=== PATIENT | female | born 1965 | race Two or more races ===

== ENCOUNTER → 2017-05-19 | Outpatient (CLI) | payer OTHER ==
[~2017-05-19] MED LIST: EFFEXOR XR150 MG; EFFEXOR XR150 MG PO; FUSION PLUS CA1 EACH; INTESTINEX680 M1; LEXAPRO5 MG; OPTIMAL D350000 UNIT; PEPCID40 MG; PNEU16DI2; PROTONIX40 MG
== END | disposition home or self-care (01) ==
LOC: TOM 08:28
DX: R10.9 Unspecified abdominal pain (principal)

== ENCOUNTER 2017-05-22 08:50 | Emergency (ER) | payer OTHER ==
[~2017-05-22] VITALS: Ht 157.5 cm; Wt 87.5 kg
[~2017-05-22 08:50] MED LIST changes: -INTESTINEX680 M1; -OPTIMAL D350000 UNIT; -PEPCID40 MG; -PROTONIX40 MG
[2017-05-22] MEDS ORDERED: INTESTINEX680 M1 (09:12)
[2017-05-22] MEDS ORDERED: PROTONIX40 MG (09:13)
[2017-05-22] MEDS ORDERED: PEPCID40 MG (09:13)
[2017-05-22] MEDS ORDERED: OPTIMAL D350000 UNIT (09:14)
== END 2017-05-22 18:37 | disposition home or self-care (01) ==
LOC: ER 08:50
DX: K52.9 Noninfective gastroenteritis and colitis, unspecified (principal)

== ENCOUNTER → 2017-05-25 | Outpatient (CLI) | payer OTHER ==
[~2017-05-25] MED LIST changes: +INTESTINEX680 M1; +OPTIMAL D350000 UNIT; +PEPCID40 MG; +PROTONIX40 MG
== END | disposition home or self-care (01) ==
LOC: LAB 10:55
DX: R10.30 Lower abdominal pain, unspecified (principal); R19.7 Diarrhea, unspecified; R74.0 Nonspecific elevation of levels of transaminase and lactic acid dehydrogenase [LDH]; K75.4 Autoimmune hepatitis

== ENCOUNTER 2017-05-29 12:08 | Outpatient (CLI) | payer OTHER | END 2017-05-29 12:17 | disposition home or self-care (01) | LOC: LAB 12:08 | DX: R10.30 Lower abdominal pain, unspecified (principal); R19.7 Diarrhea, unspecified; R74.0 Nonspecific elevation of levels of transaminase and lactic acid dehydrogenase [LDH]; K75.4 Autoimmune hepatitis ==

== ENCOUNTER 2017-06-26 07:54 | Outpatient (CLI) | payer OTHER | END 2017-06-26 08:02 | disposition home or self-care (01) | LOC: LAB 07:54 | DX: D50.0 Iron deficiency anemia secondary to blood loss (chronic) (principal); K22.11 Ulcer of esophagus with bleeding; K25.4 Chronic or unspecified gastric ulcer with hemorrhage; Z87.11 Personal history of peptic ulcer disease; R04.0 Epistaxis; E88.81 Metabolic syndrome and other insulin resistance; F33.9 Major depressive disorder, recurrent, unspecified; G47.33 Obstructive sleep apnea (adult) (pediatric); D51.8 Other vitamin B12 deficiency anemias; D51.0 Vitamin B12 deficiency anemia due to intrinsic factor deficiency; R19.5 Other fecal abnormalities ==

== ENCOUNTER 2017-07-24 08:17 | Outpatient (CLI) | payer OTHER | END 2017-07-24 08:26 | disposition home or self-care (01) | LOC: LAB 08:17 | DX: D50.0 Iron deficiency anemia secondary to blood loss (chronic) (principal); K22.11 Ulcer of esophagus with bleeding; K25.4 Chronic or unspecified gastric ulcer with hemorrhage; Z87.11 Personal history of peptic ulcer disease; R04.0 Epistaxis; E88.81 Metabolic syndrome and other insulin resistance; F33.9 Major depressive disorder, recurrent, unspecified; G47.33 Obstructive sleep apnea (adult) (pediatric); R71.8 Other abnormality of red blood cells; R19.5 Other fecal abnormalities ==

== ENCOUNTER 2017-07-27 10:14 | Outpatient (CLI) | payer OTHER | END 2017-07-27 10:22 | disposition home or self-care (01) | LOC: LAB 10:14 | DX: D50.0 Iron deficiency anemia secondary to blood loss (chronic) (principal); K22.11 Ulcer of esophagus with bleeding; K25.4 Chronic or unspecified gastric ulcer with hemorrhage; E88.81 Metabolic syndrome and other insulin resistance; F33.8 Other recurrent depressive disorders; G47.33 Obstructive sleep apnea (adult) (pediatric); R04.0 Epistaxis; R71.8 Other abnormality of red blood cells; R19.5 Other fecal abnormalities; Z87.11 Personal history of peptic ulcer disease ==

== ENCOUNTER → 2017-08-08 | Outpatient (CLI) | payer OTHER | END | disposition home or self-care (01) | LOC: LAB 11:23 | DX: D50.0 Iron deficiency anemia secondary to blood loss (chronic) (principal) ==

== ENCOUNTER 2017-08-29 10:27 | Outpatient (CLI) | payer OTHER | END 2017-08-29 10:34 | disposition home or self-care (01) | LOC: RAD 501 10:27 | DX: M20.11 Hallux valgus (acquired), right foot (principal); M20.12 Hallux valgus (acquired), left foot ==

== ENCOUNTER 2017-09-14 09:15 | Outpatient (CLI) | payer OTHER | END 2017-09-14 17:00 | disposition home or self-care (01) | LOC: MAMO-SONO 09:15 | DX: Z12.31 Encounter for screening mammogram for malignant neoplasm of breast (principal); N62 Hypertrophy of breast ==

== ENCOUNTER 2017-09-26 10:39 | Outpatient (CLI) | payer OTHER | END 2017-09-26 11:08 | disposition home or self-care (01) | LOC: LAB 10:39 | DX: D50.0 Iron deficiency anemia secondary to blood loss (chronic) (principal); K22.11 Ulcer of esophagus with bleeding; K25.4 Chronic or unspecified gastric ulcer with hemorrhage; Z87.11 Personal history of peptic ulcer disease; R04.0 Epistaxis; E88.81 Metabolic syndrome and other insulin resistance; F33.9 Major depressive disorder, recurrent, unspecified; G47.33 Obstructive sleep apnea (adult) (pediatric) ==

== ENCOUNTER 2017-10-17 07:27 | Outpatient (CLI) | payer OTHER | END 2017-10-17 07:34 | disposition home or self-care (01) | LOC: NUCLEAR 07:27 | DX: I25.10 Atherosclerotic heart disease of native coronary artery without angina pectoris (principal); R07.89 Other chest pain | CPT/HCPCS: 78452; 93017; A9500; J0153 ==

== ENCOUNTER → 2018-01-04 10:30 | Outpatient (CLI) | payer OTHER | END | disposition home or self-care (01) | LOC: LAB 10:30 | DX: D50.0 Iron deficiency anemia secondary to blood loss (chronic) (principal); K22.11 Ulcer of esophagus with bleeding; K25.4 Chronic or unspecified gastric ulcer with hemorrhage; Z87.11 Personal history of peptic ulcer disease; R04.0 Epistaxis; E88.81 Metabolic syndrome and other insulin resistance; G47.33 Obstructive sleep apnea (adult) (pediatric); D50.8 Other iron deficiency anemias; D51.8 Other vitamin B12 deficiency anemias; E03.8 Other specified hypothyroidism ==

== ENCOUNTER 2018-04-21 07:46 | Outpatient (CLI) | payer OTHER | END 2018-04-21 07:50 | disposition home or self-care (01) | LOC: LAB 07:46 | DX: D50.0 Iron deficiency anemia secondary to blood loss (chronic) (principal); K22.11 Ulcer of esophagus with bleeding; K25.4 Chronic or unspecified gastric ulcer with hemorrhage; Z87.11 Personal history of peptic ulcer disease; R04.0 Epistaxis; E88.81 Metabolic syndrome and other insulin resistance; F33.9 Major depressive disorder, recurrent, unspecified; G47.33 Obstructive sleep apnea (adult) (pediatric); D50.8 Other iron deficiency anemias; D51.8 Other vitamin B12 deficiency anemias; E03.8 Other specified hypothyroidism ==

== ENCOUNTER 2018-04-25 09:39 | Outpatient (CLI) | payer OTHER | END 2018-04-25 09:58 | disposition home or self-care (01) | LOC: NUCLEAR 09:39 | DX: I87.2 Venous insufficiency (chronic) (peripheral) (principal) ==

== ENCOUNTER 2018-06-05 09:14 | Outpatient (CLI) | payer OTHER | END 2018-06-05 09:47 | disposition home or self-care (01) | LOC: LAB 09:14 | DX: N64.4 Mastodynia (principal); D50.0 Iron deficiency anemia secondary to blood loss (chronic); K22.11 Ulcer of esophagus with bleeding; Z87.11 Personal history of peptic ulcer disease; R04.0 Epistaxis; E88.81 Metabolic syndrome and other insulin resistance; F33.8 Other recurrent depressive disorders; G47.33 Obstructive sleep apnea (adult) (pediatric); D68.8 Other specified coagulation defects; D68.0 Von Willebrand disease; D50.8 Other iron deficiency anemias ==

== ENCOUNTER 2018-06-12 12:16 | Outpatient (CLI) | payer OTHER | END 2018-06-12 13:15 | disposition home or self-care (01) | LOC: RAD 12:16 | DX: R60.0 Localized edema (principal); M25.521 Pain in right elbow ==

== ENCOUNTER → 2018-09-01 08:12 | Outpatient (CLI) | payer OTHER | END | disposition home or self-care (01) | LOC: LAB 08:12 | DX: D68.0 Von Willebrand disease (principal); D50.0 Iron deficiency anemia secondary to blood loss (chronic); K22.11 Ulcer of esophagus with bleeding; K25.4 Chronic or unspecified gastric ulcer with hemorrhage; Z87.11 Personal history of peptic ulcer disease; R04.0 Epistaxis; E88.81 Metabolic syndrome and other insulin resistance; F33.8 Other recurrent depressive disorders; G47.33 Obstructive sleep apnea (adult) (pediatric); N64.4 Mastodynia ==

== ENCOUNTER 2018-09-19 08:47 | Outpatient (CLI) | payer OTHER | END 2018-09-19 09:06 | disposition home or self-care (01) | LOC: MAMO-SONO 08:47 | DX: N60.11 Diffuse cystic mastopathy of right breast (principal); N60.12 Diffuse cystic mastopathy of left breast; Z12.31 Encounter for screening mammogram for malignant neoplasm of breast; Z87.898 Personal history of other specified conditions ==

== ENCOUNTER 2018-11-22 07:55 | Emergency (ER) | payer OTHER ==
[~2018-11-22] VITALS: Ht 167.6 cm; Wt 72.6 kg
[2018-11-22] MEDS ORDERED: IBUPROFEN800 MG PO (11:04)
[2018-11-22] MEDS ORDERED: CLEOCIN HCL300 MG PO (11:04)
== END 2018-11-22 11:03 | disposition home or self-care (01) ==
LOC: ER 07:55
DX: K04.7 Periapical abscess without sinus (principal)

== ENCOUNTER → 2019-01-12 08:01 | Outpatient (CLI) | payer OTHER ==
[~2019-01-12 08:01] MED LIST changes: +CLEOCIN HCL300 MG PO; +IBUPROFEN800 MG PO
== END | disposition home or self-care (01) ==
LOC: LAB 08:01
DX: D68.0 Von Willebrand disease (principal); D50.0 Iron deficiency anemia secondary to blood loss (chronic); K22.11 Ulcer of esophagus with bleeding; K25.4 Chronic or unspecified gastric ulcer with hemorrhage; Z87.11 Personal history of peptic ulcer disease; R04.0 Epistaxis; E88.81 Metabolic syndrome and other insulin resistance; F33.8 Other recurrent depressive disorders; G47.33 Obstructive sleep apnea (adult) (pediatric); N64.4 Mastodynia; D50.8 Other iron deficiency anemias; D51.8 Other vitamin B12 deficiency anemias; I10 Essential (primary) hypertension; N39.0 Urinary tract infection, site not specified; D68.8 Other specified coagulation defects

== ENCOUNTER 2019-01-31 09:51 | Outpatient (CLI) | payer OTHER | END 2019-01-31 10:03 | disposition home or self-care (01) | LOC: NUCLEAR 09:51 | DX: R22.43 Localized swelling, mass and lump, lower limb, bilateral (principal); I87.2 Venous insufficiency (chronic) (peripheral) ==

== ENCOUNTER 2019-03-09 07:13 | Emergency (ER) | payer OTHER ==
[~2019-03-09] VITALS: Ht 157.5 cm; Wt 92.1 kg
== END 2019-03-09 09:53 | disposition home or self-care (01) ==
LOC: ER 07:13
DX: R21 Rash and other nonspecific skin eruption (principal)

== ENCOUNTER 2019-05-16 09:09 | Outpatient (CLI) | payer OTHER | END 2019-05-16 09:15 | disposition home or self-care (01) | LOC: LAB 09:09 | DX: D68.0 Von Willebrand disease (principal); D50.0 Iron deficiency anemia secondary to blood loss (chronic); K22.11 Ulcer of esophagus with bleeding; K25.4 Chronic or unspecified gastric ulcer with hemorrhage; Z87.11 Personal history of peptic ulcer disease; R04.0 Epistaxis; E88.81 Metabolic syndrome and other insulin resistance; F33.8 Other recurrent depressive disorders; G47.33 Obstructive sleep apnea (adult) (pediatric); N64.4 Mastodynia; R22.43 Localized swelling, mass and lump, lower limb, bilateral; D50.8 Other iron deficiency anemias; D51.8 Other vitamin B12 deficiency anemias; I10 Essential (primary) hypertension; E03.8 Other specified hypothyroidism; R19.5 Other fecal abnormalities ==

== ENCOUNTER → 2019-06-17 | Outpatient (CLI) | payer OTHER | END | disposition home or self-care (01) | LOC: LAB 10:38 | DX: D50.8 Other iron deficiency anemias (principal); I10 Essential (primary) hypertension; D68.8 Other specified coagulation defects; D68.0 Von Willebrand disease; E03.8 Other specified hypothyroidism; D50.0 Iron deficiency anemia secondary to blood loss (chronic); K22.11 Ulcer of esophagus with bleeding; K25.4 Chronic or unspecified gastric ulcer with hemorrhage; Z87.11 Personal history of peptic ulcer disease; R04.0 Epistaxis; E88.81 Metabolic syndrome and other insulin resistance; F33.8 Other recurrent depressive disorders; G47.33 Obstructive sleep apnea (adult) (pediatric); N64.4 Mastodynia; R22.43 Localized swelling, mass and lump, lower limb, bilateral ==

== ENCOUNTER 2019-09-23 09:27 | Outpatient (CLI) | payer OTHER | END 2019-09-23 16:46 | disposition home or self-care (01) | LOC: MAMO-SONO 09:27 | DX: Z12.31 Encounter for screening mammogram for malignant neoplasm of breast (principal); Z87.898 Personal history of other specified conditions; N63.10 Unspecified lump in the right breast, unspecified quadrant ==

== ENCOUNTER 2019-11-28 13:52 | Outpatient (CLI) | payer OTHER | END 2019-11-28 13:53 | disposition home or self-care (01) | LOC: NUCLEAR 13:52 | PROVIDERS: ATTEND Internal Medicine Cardiovascular Disease | DX: M81.0 Age-related osteoporosis without current pathological fracture (principal); E55.9 Vitamin D deficiency, unspecified ==

== ENCOUNTER 2019-12-07 10:28 | Outpatient (CLI) | payer OTHER | END 2019-12-07 15:47 | disposition home or self-care (01) | LOC: LAB 10:28 | PROVIDERS: ATTEND Internal Medicine Hematology & Oncology | DX: D50.8 Other iron deficiency anemias (principal); I10 Essential (primary) hypertension; E55.9 Vitamin D deficiency, unspecified; E03.8 Other specified hypothyroidism; D68.8 Other specified coagulation defects; D68.0 Von Willebrand disease; D50.0 Iron deficiency anemia secondary to blood loss (chronic); K22.11 Ulcer of esophagus with bleeding; K25.4 Chronic or unspecified gastric ulcer with hemorrhage; Z87.11 Personal history of peptic ulcer disease; R04.0 Epistaxis; E88.81 Metabolic syndrome and other insulin resistance; F33.8 Other recurrent depressive disorders; G47.33 Obstructive sleep apnea (adult) (pediatric); N64.4 Mastodynia; R22.43 Localized swelling, mass and lump, lower limb, bilateral ==

== ENCOUNTER → 2020-02-06 | Outpatient (CLI) | payer OTHER | END | disposition home or self-care (01) | LOC: SONOGRAMA 08:40 | PROVIDERS: ATTEND Specialist | DX: R31.29 Other microscopic hematuria (principal) ==

== ENCOUNTER 2020-04-08 08:55 | Outpatient (CLI) | payer OTHER | END 2020-04-13 08:46 | disposition home or self-care (01) | LOC: LAB 08:55 | PROVIDERS: ATTEND Internal Medicine Hematology & Oncology | DX: D50.8 Other iron deficiency anemias (principal); I10 Essential (primary) hypertension; E55.9 Vitamin D deficiency, unspecified; E03.8 Other specified hypothyroidism; D68.8 Other specified coagulation defects; D68.0 Von Willebrand disease; D50.0 Iron deficiency anemia secondary to blood loss (chronic); K22.11 Ulcer of esophagus with bleeding; K25.4 Chronic or unspecified gastric ulcer with hemorrhage; Z87.11 Personal history of peptic ulcer disease; R04.0 Epistaxis; E88.81 Metabolic syndrome and other insulin resistance; F33.8 Other recurrent depressive disorders; G47.33 Obstructive sleep apnea (adult) (pediatric); N64.4 Mastodynia; R22.43 Localized swelling, mass and lump, lower limb, bilateral; B37.89 Other sites of candidiasis ==

== ENCOUNTER → 2020-08-04 | Outpatient (CLI) | payer OTHER | END | disposition home or self-care (01) | LOC: LAB 09:32 | PROVIDERS: ATTEND Internal Medicine Hematology & Oncology | DX: D50.8 Other iron deficiency anemias (principal); R74.02 Elevation of levels of lactic acid dehydrogenase [LDH]; I10 Essential (primary) hypertension; K76.89 Other specified diseases of liver; E03.8 Other specified hypothyroidism; D68.8 Other specified coagulation defects; D69.1 Qualitative platelet defects; K22.11 Ulcer of esophagus with bleeding; K25.4 Chronic or unspecified gastric ulcer with hemorrhage; G47.33 Obstructive sleep apnea (adult) (pediatric); R73.01 Impaired fasting glucose; F33.9 Major depressive disorder, recurrent, unspecified ==

== ENCOUNTER 2020-08-12 07:48 | Outpatient (CLI) | payer OTHER | END 2020-08-12 13:19 | disposition home or self-care (01) | LOC: SONOGRAMA 07:48 | PROVIDERS: ATTEND Internal Medicine Hematology & Oncology | DX: D68.0 Von Willebrand disease (principal); D50.0 Iron deficiency anemia secondary to blood loss (chronic); K22.11 Ulcer of esophagus with bleeding; K25.4 Chronic or unspecified gastric ulcer with hemorrhage; R04.0 Epistaxis; F33.9 Major depressive disorder, recurrent, unspecified; G47.33 Obstructive sleep apnea (adult) (pediatric); N64.4 Mastodynia; R22.43 Localized swelling, mass and lump, lower limb, bilateral; B37.89 Other sites of candidiasis; R73.01 Impaired fasting glucose; R94.5 Abnormal results of liver function studies ==

== ENCOUNTER 2020-08-20 10:31 | Outpatient (CLI) | payer OTHER | END 2020-08-20 16:22 | disposition home or self-care (01) | LOC: LAB 10:31 | PROVIDERS: ATTEND Internal Medicine Cardiovascular Disease | DX: N39.0 Urinary tract infection, site not specified (principal) ==

== ENCOUNTER 2020-09-22 08:56 | Outpatient (CLI) | payer OTHER | END 2020-09-22 09:07 | disposition home or self-care (01) | LOC: MAMO-SONO 08:56 | PROVIDERS: ATTEND Internal Medicine Cardiovascular Disease | DX: Z12.31 Encounter for screening mammogram for malignant neoplasm of breast (principal); Z87.898 Personal history of other specified conditions; N64.89 Other specified disorders of breast ==

== ENCOUNTER 2020-11-10 09:47 | Outpatient (CLI) | payer OTHER | END 2020-11-10 09:48 | disposition home or self-care (01) | LOC: LAB 09:47 | PROVIDERS: ATTEND Internal Medicine Cardiovascular Disease | DX: I10 Essential (primary) hypertension (principal); E11.9 Type 2 diabetes mellitus without complications; E03.8 Other specified hypothyroidism; E78.2 Mixed hyperlipidemia ==

== ENCOUNTER 2020-11-18 06:54 | Outpatient (CLI) | payer OTHER | END 2020-11-18 06:59 | disposition home or self-care (01) | LOC: SONOGRAMA 06:54 | PROVIDERS: ATTEND Internal Medicine Cardiovascular Disease | DX: R10.84 Generalized abdominal pain (principal); R16.0 Hepatomegaly, not elsewhere classified ==

== ENCOUNTER 2020-11-24 08:23 | Outpatient (CLI) | payer OTHER | END 2020-11-24 15:41 | disposition home or self-care (01) | LOC: LAB 08:23 | PROVIDERS: ATTEND Internal Medicine Cardiovascular Disease | DX: E03.8 Other specified hypothyroidism (principal); I11.9 Hypertensive heart disease without heart failure ==

== ENCOUNTER 2021-02-09 09:11 | Outpatient (CLI) | payer OTHER | END 2021-02-09 09:13 | disposition home or self-care (01) | LOC: LAB 09:11 | PROVIDERS: ATTEND Internal Medicine Hematology & Oncology | DX: D50.8 Other iron deficiency anemias (principal); I10 Essential (primary) hypertension; R74.02 Elevation of levels of lactic acid dehydrogenase [LDH]; K76.89 Other specified diseases of liver; E03.8 Other specified hypothyroidism; D68.8 Other specified coagulation defects; C50.919 Malignant neoplasm of unspecified site of unspecified female breast; R97.8 Other abnormal tumor markers; R74.8 Abnormal levels of other serum enzymes; R97.0 Elevated carcinoembryonic antigen [CEA]; D68.0 Von Willebrand disease; D50.0 Iron deficiency anemia secondary to blood loss (chronic); K22.11 Ulcer of esophagus with bleeding; K25.4 Chronic or unspecified gastric ulcer with hemorrhage; Z87.11 Personal history of peptic ulcer disease; R04.0 Epistaxis; E88.81 Metabolic syndrome and other insulin resistance; F33.8 Other recurrent depressive disorders; G47.33 Obstructive sleep apnea (adult) (pediatric); N64.4 Mastodynia; R22.43 Localized swelling, mass and lump, lower limb, bilateral; B37.89 Other sites of candidiasis ==

== ENCOUNTER 2021-02-09 15:39 | Emergency (ER) | payer OTHER ==
[~2021-02-09] VITALS: Ht 157.5 cm; Wt 93.0 kg
== END 2021-02-09 17:49 | disposition home or self-care (01) ==
LOC: ER 15:39
DX: R15.9 Full incontinence of feces (principal)

== ENCOUNTER 2021-07-31 09:59 | Emergency (ER) | payer OTHER ==
[~2021-07-31] VITALS: Ht 157.5 cm; Wt 94.8 kg
== END 2021-07-31 14:45 | disposition home or self-care (01) ==
LOC: ER 09:59
DX: R42 Dizziness and giddiness (principal)

== ENCOUNTER 2021-08-10 10:28 | Emergency (ER) | payer OTHER ==
[~2021-08-10] VITALS: Ht 167.6 cm; Wt 96.6 kg
[2021-08-10] MEDS ORDERED: EFFEXOR XR75 MG PO (10:47)
== END 2021-08-10 15:36 | disposition home or self-care (01) ==
LOC: ER 10:28
DX: K52.9 Noninfective gastroenteritis and colitis, unspecified (principal); R42 Dizziness and giddiness; Z88.0 Allergy status to penicillin; Z88.6 Allergy status to analgesic agent

== ENCOUNTER 2021-09-08 09:01 | Outpatient (CLI) | payer OTHER ==
[~2021-09-08 09:01] MED LIST changes: +EFFEXOR XR75 MG PO
== END 2021-09-08 09:07 | disposition home or self-care (01) ==
LOC: LAB 09:01
PROVIDERS: ATTEND Internal Medicine Hematology & Oncology
DX: D50.8 Other iron deficiency anemias (principal)

== ENCOUNTER 2021-09-28 16:14 | Outpatient (CLI) | payer OTHER | END 2021-09-28 23:00 | disposition home or self-care (01) | LOC: LAB 16:14 | DX: K29.70 Gastritis, unspecified, without bleeding (principal); B96.81 Helicobacter pylori [H. pylori] as the cause of diseases classified elsewhere ==

== ENCOUNTER 2021-10-12 12:41 | Outpatient (CLI) | payer OTHER | END 2021-10-12 12:47 | disposition home or self-care (01) | LOC: LAB 12:41 | PROVIDERS: ATTEND Internal Medicine Hematology & Oncology | DX: D50.8 Other iron deficiency anemias (principal); D68.0 Von Willebrand disease; D50.0 Iron deficiency anemia secondary to blood loss (chronic); K22.11 Ulcer of esophagus with bleeding; K25.4 Chronic or unspecified gastric ulcer with hemorrhage; Z87.11 Personal history of peptic ulcer disease; R04.0 Epistaxis; E88.81 Metabolic syndrome and other insulin resistance; F33.9 Major depressive disorder, recurrent, unspecified; G47.33 Obstructive sleep apnea (adult) (pediatric); N64.4 Mastodynia; R22.43 Localized swelling, mass and lump, lower limb, bilateral; B37.89 Other sites of candidiasis; R73.01 Impaired fasting glucose; R94.5 Abnormal results of liver function studies ==

== ENCOUNTER 2021-11-03 09:04 | Outpatient (CLI) | payer OTHER | END 2021-11-03 09:22 | disposition home or self-care (01) | LOC: LAB 09:04 | PROVIDERS: ATTEND Internal Medicine Hematology & Oncology | DX: D50.8 Other iron deficiency anemias (principal) ==

== ENCOUNTER 2022-01-12 11:01 | Outpatient (CLI) | payer OTHER | END 2022-01-12 11:02 | disposition home or self-care (01) | LOC: LAB 11:01 | PROVIDERS: ATTEND Internal Medicine Hematology & Oncology | DX: D50.8 Other iron deficiency anemias (principal); I10 Essential (primary) hypertension; R74.02 Elevation of levels of lactic acid dehydrogenase [LDH]; K76.89 Other specified diseases of liver; D68.0 Von Willebrand disease; K25.4 Chronic or unspecified gastric ulcer with hemorrhage; R04.0 Epistaxis; E88.81 Metabolic syndrome and other insulin resistance; F33.9 Major depressive disorder, recurrent, unspecified; G47.33 Obstructive sleep apnea (adult) (pediatric); N64.4 Mastodynia; R22.43 Localized swelling, mass and lump, lower limb, bilateral; B37.89 Other sites of candidiasis; R94.5 Abnormal results of liver function studies ==

== ENCOUNTER 2022-03-29 07:57 | Outpatient (CLI) | payer OTHER | END 2022-03-29 08:10 | disposition home or self-care (01) | LOC: SONOGRAMA 07:57 | PROVIDERS: ATTEND Internal Medicine Hematology & Oncology | DX: E04.2 Nontoxic multinodular goiter (principal); D50.0 Iron deficiency anemia secondary to blood loss (chronic) ==

== ENCOUNTER 2022-03-29 08:19 | Outpatient (CLI) | payer OTHER | END 2022-03-29 09:28 | disposition home or self-care (01) | LOC: LAB 08:19 | PROVIDERS: ATTEND Internal Medicine Hematology & Oncology | DX: D68.00 Von Willebrand disease, unspecified (principal); D50.0 Iron deficiency anemia secondary to blood loss (chronic); K22.11 Ulcer of esophagus with bleeding; K25.4 Chronic or unspecified gastric ulcer with hemorrhage; Z87.11 Personal history of peptic ulcer disease; R04.0 Epistaxis; E88.81 Metabolic syndrome and other insulin resistance; F33.9 Major depressive disorder, recurrent, unspecified; G47.33 Obstructive sleep apnea (adult) (pediatric); N64.4 Mastodynia; R22.43 Localized swelling, mass and lump, lower limb, bilateral; B37.89 Other sites of candidiasis; R94.5 Abnormal results of liver function studies; D50.8 Other iron deficiency anemias; I10 Essential (primary) hypertension; R74.02 Elevation of levels of lactic acid dehydrogenase [LDH]; K76.89 Other specified diseases of liver; E03.8 Other specified hypothyroidism; E06.3 Autoimmune thyroiditis ==

== ENCOUNTER → 2022-10-11 | Outpatient (CLI) | payer OTHER | END | disposition home or self-care (01) | LOC: LAB 08:27 | PROVIDERS: ATTEND Internal Medicine Hematology & Oncology | DX: D50.8 Other iron deficiency anemias (principal); I10 Essential (primary) hypertension; R74.02 Elevation of levels of lactic acid dehydrogenase [LDH]; K76.89 Other specified diseases of liver; D68.00 Von Willebrand disease, unspecified; D50.0 Iron deficiency anemia secondary to blood loss (chronic); K22.11 Ulcer of esophagus with bleeding; K25.4 Chronic or unspecified gastric ulcer with hemorrhage; R04.0 Epistaxis; E88.81 Metabolic syndrome and other insulin resistance; F33.9 Major depressive disorder, recurrent, unspecified; G47.33 Obstructive sleep apnea (adult) (pediatric); N64.4 Mastodynia; R22.43 Localized swelling, mass and lump, lower limb, bilateral; B37.89 Other sites of candidiasis; R94.5 Abnormal results of liver function studies; B96.81 Helicobacter pylori [H. pylori] as the cause of diseases classified elsewhere ==

== ENCOUNTER 2022-12-01 07:26 | Emergency (ER) | payer OTHER ==
[~2022-12-01] VITALS: Ht 157.5 cm; Wt 96.2 kg
[2022-12-01] MEDS ORDERED: LEXAPRO5 MG PO (07:44)
== END 2022-12-01 10:58 | disposition home or self-care (01) ==
LOC: ER 07:26
DX: M79.605 Pain in left leg (principal); I10 Essential (primary) hypertension; Z88.6 Allergy status to analgesic agent; Z88.0 Allergy status to penicillin; Z88.8 Allergy status to other drugs, medicaments and biological substances

== ENCOUNTER 2022-12-28 07:29 | Outpatient (CLI) | payer OTHER ==
[~2022-12-28 07:29] MED LIST changes: +LEXAPRO5 MG PO
== END 2022-12-28 16:25 | disposition home or self-care (01) ==
LOC: SONOGRAMA 07:29
PROVIDERS: ATTEND Internal Medicine Cardiovascular Disease
DX: D35.00 Benign neoplasm of unspecified adrenal gland (principal); I10 Essential (primary) hypertension

== ENCOUNTER 2022-12-28 08:04 | Outpatient (CLI) | payer OTHER | END 2022-12-28 08:06 | disposition home or self-care (01) | LOC: LAB 08:04 | PROVIDERS: ATTEND Internal Medicine Cardiovascular Disease | DX: D64.9 Anemia, unspecified (principal); E11.69 Type 2 diabetes mellitus with other specified complication; K76.0 Fatty (change of) liver, not elsewhere classified; E11.22 Type 2 diabetes mellitus with diabetic chronic kidney disease; E78.5 Hyperlipidemia, unspecified ==

== ENCOUNTER 2023-01-02 08:39 | Outpatient (CLI) | payer OTHER | END 2023-01-02 08:46 | disposition home or self-care (01) | LOC: LAB 08:39 | PROVIDERS: ATTEND Internal Medicine Cardiovascular Disease | DX: I10 Essential (primary) hypertension (principal); D35.00 Benign neoplasm of unspecified adrenal gland; Z88.0 Allergy status to penicillin; Z88.5 Allergy status to narcotic agent; Z88.6 Allergy status to analgesic agent ==

== ENCOUNTER → 2023-03-06 09:41 | Outpatient (CLI) | payer OTHER ==
[2023-03-06 10:50] LABS: PH,URINE 6.5 (5.0-8.0); URINE APPEARANCE Clear; URINE BILIRRUBIN Negative (NEGATIVE); URINE BLOOD Trace; URINE COLOR Yellow; URINE GLUCOSE Negative (NEGATIVE); URINE LEUKOCYTE Negative; URINE NITRATE Negative; URINE PROTEIN Negative (NEGATIVE)
[2023-03-06 10:51] LABS: URINE BACTERIA 1366.9 uL (0.0-1933); URINE RBC 8.1 uL (0.0-20.8); URINE WBC 12.3 uL (0.0-23.2)
[2023-03-06 10:51] LABS: HEMATOCRIT 36.8 % (36.0-45.00); HEMOGLOBIN 11.8 g/dL (12.0-15.00); MEAN CELL VOLUME 72.7 fL (80.00-100.00); MEAN CORPUSCULAR HEMOGLOBIN 23.3 pg (27.00-32.0); PLATELET COUNT 292 K/uL (150-450); RED BLOOD COUNT 5.06 M/uL (4.00-6.00); RED CELL DISTRIBUTION WIDTH 16.9 % (11.5-14.5)
[2023-03-06 11:32] LABS: CALCIUM 9.6 mg/dL (8.5-10.1); CREATININE SERUM 0.63 mg/dL (0.55-1.02); GFR 96.72; POTASSIUM 4.83 mEq/L (3.5-5.1); T4 TOTAL 8.62 UG/DL (4.8-13.9); TSH 1.59 uIU/mL (0.358-3.74)
== END | disposition home or self-care (01) ==
LOC: LAB 09:41
PROVIDERS: ATTEND Internal Medicine Cardiovascular Disease
DX: E11.9 Type 2 diabetes mellitus without complications (principal); E03.9 Hypothyroidism, unspecified; E78.2 Mixed hyperlipidemia; Z88.0 Allergy status to penicillin; Z88.5 Allergy status to narcotic agent; Z88.6 Allergy status to analgesic agent

== ENCOUNTER 2023-03-31 07:58 | Emergency (ER) | payer OTHER ==
[~2023-03-31] VITALS: Ht 157.5 cm; Wt 97.1 kg
[2023-03-31 11:04] LABS: HEMATOCRIT 37.7 % (36.0-45.00); HEMOGLOBIN 11.8 g/dL (12.0-15.00); MEAN CELL VOLUME 72.2 fL (80.00-100.00); MEAN CORPUSCULAR HEMOGLOBIN 22.6 pg (27.00-32.0); MEAN CORPUSCULAR HGB CONC 31.3 g/dl (32.0-36.0); PLATELET COUNT 288 K/uL (150-450); RED BLOOD COUNT 5.22 M/uL (4.00-6.00)
== END 2023-03-31 12:41 | disposition home or self-care (01) ==
LOC: ER 07:58
PROVIDERS: General Practice
DX: J40 Bronchitis, not specified as acute or chronic (principal); Z20.822 Contact with and (suspected) exposure to COVID-19; Z88.6 Allergy status to analgesic agent; Z88.0 Allergy status to penicillin; Z88.8 Allergy status to other drugs, medicaments and biological substances
CPT/HCPCS: 36415; 71046; 94640; 96365; 99284; J2930

== ENCOUNTER 2023-05-18 11:38 | Emergency (ER) | payer OTHER ==
[~2023-05-18] VITALS: Ht 157.5 cm; Wt 99.3 kg
[2023-05-18 16:11] LABS: HEMATOCRIT 38.1 % (36.0-45.00); HEMOGLOBIN 11.7 g/dL (12.0-15.00); MEAN CELL VOLUME 70.6 fL (80.00-100.00); MEAN CORPUSCULAR HEMOGLOBIN 21.6 pg (27.00-32.0); MEAN CORPUSCULAR HGB CONC 30.6 g/dl (32.0-36.0); PLATELET COUNT 295 K/uL (150-450); RED CELL DISTRIBUTION WIDTH 17.6 % (11.5-14.5)
[2023-05-18 16:33] LABS: INR 0.99; PROTHROMBIN TIME 10.4 SECONDS (9.0-11.5)
[2023-05-18 16:37] LABS: ALBUMIN 3.5 gm/dL (3.4-5.0); BILIRUBIN TOTAL 0.34 mg/dL (0.3-1.2); CALCIUM 8.7 mg/dL (8.5-10.1); CREATININE SERUM 0.64 mg/dL (0.55-1.02); GFR 94.98; GLOBULINA 3.4 G/DL (2.4-3.5); POTASSIUM 3.93 mEq/L (3.5-5.1); TOTAL PROTEIN 6.9 gm/dL (6.4-8.2)
== END 2023-05-18 17:40 | disposition home or self-care (01) ==
LOC: ER 11:38
PROVIDERS: Emergency Medicine
DX: D64.89 Other specified anemias (principal); F32.89 Other specified depressive episodes; Z88.0 Allergy status to penicillin; Z88.6 Allergy status to analgesic agent; I10 Essential (primary) hypertension; R42 Dizziness and giddiness

== ENCOUNTER 2023-06-13 09:04 | Outpatient (CLI) | payer OTHER ==
[2023-06-13 09:57] LABS: HEMATOCRIT 34.3 % (36.0-45.00); HEMOGLOBIN 10.6 g/dL (12.0-15.00); MEAN CELL VOLUME 68.1 fL (80.00-100.00); MEAN CORPUSCULAR HEMOGLOBIN 21.1 pg (27.00-32.0); MEAN CORPUSCULAR HGB CONC 30.9 g/dl (32.0-36.0); PLATELET COUNT 282 K/uL (150-450); RED BLOOD COUNT 5.03 M/uL (4.00-6.00); RED CELL DISTRIBUTION WIDTH 17.7 % (11.5-14.5)
[2023-06-13 10:32] LABS: INR 0.98; PARTIAL THROMBOPLASTIN TIME 30.5 SECONDS (22.0-34.0); PROTHROMBIN TIME 10.3 SECONDS (9.0-11.5)
[2023-06-13 10:38] LABS: ALBUMIN 3.5 gm/dL (3.4-5.0); BILIRUBIN TOTAL 0.42 mg/dL (0.3-1.2); CALCIUM 8.8 mg/dL (8.5-10.1); CREATININE SERUM 0.56 mg/dL (0.55-1.02); GFR 110.8; GLOBULINA 3.4 G/DL (2.4-3.5); POTASSIUM 4.11 mEq/L (3.5-5.1); TOTAL PROTEIN 6.9 gm/dL (6.4-8.2)
[2023-06-13 11:03] LABS: FERRITIN 5.4 NG/ML (8-252)
[2023-06-14 08:08] LABS: TRANSFERIN 342 mg/dL (192-364)
== END 2023-06-13 09:19 | disposition home or self-care (01) ==
LOC: LAB 09:04
PROVIDERS: ATTEND Internal Medicine Hematology & Oncology
DX: D50.8 Other iron deficiency anemias (principal); I10 Essential (primary) hypertension; R74.02 Elevation of levels of lactic acid dehydrogenase [LDH]; B96.81 Helicobacter pylori [H. pylori] as the cause of diseases classified elsewhere; D68.8 Other specified coagulation defects

== ENCOUNTER → 2023-11-20 07:25 | Outpatient (CLI) | payer OTHER ==
[2023-11-20 08:09] LABS: HEMATOCRIT 30.5 % (36.0-45.00); HEMOGLOBIN 9.3 g/dL (12.0-15.00); MEAN CORPUSCULAR HEMOGLOBIN 19.2 pg (27.00-32.0); MEAN CORPUSCULAR HGB CONC 30.4 g/dl (32.0-36.0); PLATELET COUNT 357 K/uL (150-450); RED BLOOD COUNT 4.85 M/uL (4.00-6.00); RED CELL DISTRIBUTION WIDTH 18.7 % (11.5-14.5)
[2023-11-20 08:11] LABS: MEAN CELL VOLUME 62.9 fL (80.00-100.00)
[2023-11-20 08:55] LABS: ALBUMIN 3.4 gm/dL (3.4-5.0); BILIRUBIN TOTAL 0.34 mg/dL (0.3-1.2); CALCIUM 8.9 mg/dL (8.5-10.1); CHOL HDL RATIO 3.2 (0-5.0); CREATININE SERUM 0.63 mg/dL (0.55-1.02); GFR 96.39; GLOBULINA 3.4 G/DL (2.4-3.5); POTASSIUM 4.22 mEq/L (3.5-5.1); T4 TOTAL 7.19 UG/DL (4.8-13.9); TOTAL PROTEIN 6.8 gm/dL (6.4-8.2)
[2023-11-20 11:47] LABS: T3 TOTAL 1.24 ng/ml (0.846-2.02); VITAMIN D3 25 HYDROXY 26.67 ng/ml (30-120)
== END | disposition home or self-care (01) ==
LOC: LAB 07:25
PROVIDERS: ATTEND Internal Medicine Cardiovascular Disease
DX: E03.9 Hypothyroidism, unspecified (principal); I10 Essential (primary) hypertension; E11.9 Type 2 diabetes mellitus without complications; E78.2 Mixed hyperlipidemia; Z12.11 Encounter for screening for malignant neoplasm of colon; E55.9 Vitamin D deficiency, unspecified

== ENCOUNTER 2024-05-04 10:40 | Inpatient (IN) | payer OTHER ==
[~2024-05-04] VITALS: Ht 157.5 cm; Wt 89.8 kg
--- NOTE | 2024-05-04 11:16 | NUR ---
SE RECIBE PTE ALERTA Y ORIENTADA X3 LA MISMA REFIER DIFICULTAD PARA RESPIRAR Y [employer] [facility] DESDE HACE 1 SEMANA Y MEDIA. SATURANDO 97% EN EL AREA DE TRIAGE Y VITALES ESTABLES.
[2024-05-04 13:10] LABS: MEAN CORPUSCULAR HGB CONC 26.5 g/dl (32.0-36.0); PLATELET COUNT 199 K/uL (150-450); RED BLOOD COUNT 4.32 M/uL (4.00-6.00); RED CELL DISTRIBUTION WIDTH 21.2 % (11.5-14.5)
[2024-05-04 13:11] LABS: MEAN CELL VOLUME 51.7 fL (80.00-100.00); MEAN CORPUSCULAR HEMOGLOBIN 13.6 pg (27.00-32.0)
[2024-05-04 13:15] LABS: HEMATOCRIT 22.4 % (36.0-45.00); HEMOGLOBIN 5.9 g/dL (12.0-15.00)
--- NOTE | 2024-05-04 13:16 | NUR ---
SE EDUCA A PTE SOBRE TX MEDICO. SE VA MUESTRAS DE LABORATORIO UTILIZANDO MEDIDAS ASEPTICAS.
[2024-05-04 13:23] LABS: ALBUMIN 3.5 gm/dL (3.4-5.0); BILIRUBIN TOTAL 0.71 mg/dL (0.3-1.2); CALCIUM 8.8 mg/dL (8.5-10.1); CREATININE SERUM 0.72 mg/dL (0.55-1.02); GFR 82.62; GLOBULINA 3.6 G/DL (2.4-3.5); POTASSIUM 4.24 mEq/L (3.5-5.1); TOTAL PROTEIN 7.1 gm/dL (6.4-8.2)
[2024-05-04] MEDS ORDERED: PANTOPRAZOLE SODIUM 40 MG/VIAL VIAL IV ONE (13:30)
--- NOTE | 2024-05-04 14:21 | NUR ---
SE EDUCA A PTE SOBRE TX MEDICO NUEVO, SE COLOCA H/L GASPER DE EDEMA. SE VA TUBOS PILOTOS A PTE Y SE REQUIZAN 3 UNIDADES DE PRBC PARA TRANSFUNDIR. PTE FIRMA CONSENTIMIENTO DE TRANSFUSION. PTE SE UBICA EN CAMA. PTE PENDIENTE A CONSULTA.
[2024-05-04 14:27] LABS: INR 1.05; PARTIAL THROMBOPLASTIN TIME 25.1 SECONDS (22.0-34.0); PROTHROMBIN TIME 11.4 SECONDS (9.0-11.5)
[2024-05-04] MEDS ORDERED: 0.9 % SODIUM CHLORIDE 1,000 ML IV SCH (18:45)
[2024-05-04] MEDS ORDERED: ACETAMINOPHEN 325 MG TABLET PO PRN (18:45)
[2024-05-04] MEDS ORDERED: ONDANSETRON HCL 4 MG in 0.9 % SODIUM CHLORIDE 50 ML IV PRN (18:45)
[2024-05-04] MEDS ORDERED: ENALAPRILAT DIHYDRATE 1.25 MG/ML VIAL IV PRN (19:00)
[2024-05-04] MEDS ORDERED: MIRTAZAPINE 15 MG PO SCH (21:00)
[2024-05-04] MEDS ORDERED: PANTOPRAZOLE SODIUM 40 MG/VIAL VIAL IV SCH (21:00)
[2024-05-04 22:25] VITALS: BP 135/71
[2024-05-05 02:40] VITALS: BP 144/78; O2SAT 95
[2024-05-05] MEDS ORDERED: FF) Escitalopram Oxalate 5MG TABLET PO SCH (09:00)
[2024-05-05] MEDS ORDERED: PATIENTS OWN MEDICATION (MEDICAMENTO EN PISO) PO SCH ×2 (09:00→21:00)
[2024-05-05] MEDS ORDERED: SOD FERRIC GLUC COMPLX/SUCROSE 62.5 MG in 0.9 % SODIUM CHLORIDE 50 ML IV SCH (09:00)
[2024-05-05 10:03] VITALS: BP 159/70; O2SAT 98
[2024-05-05] MEDS ORDERED: LOSARTAN POTASSIUM 50 MG TABLET PO NR (12:00)
[2024-05-05 17:18] VITALS: BP 155/82; O2SAT 98
[2024-05-05] MEDS ORDERED: LOSARTAN POTASSIUM 50 MG TABLET PO SCH (19:00)
[2024-05-05 20:02] LABS: COL ADP 130 SECONDS (56-102); COL EPI 179 SECONDS (82-175)
[2024-05-06 03:21] LABS: HEMATOCRIT 30.8 % (36.0-45.00); MEAN CORPUSCULAR HGB CONC 30.3 g/dl (32.0-36.0); RED BLOOD COUNT 5.01 M/uL (4.00-6.00)
[2024-05-06 03:24] LABS: HEMOGLOBIN 9.3 g/dL (12.0-15.00); MEAN CELL VOLUME 61.4 fL (80.00-100.00); MEAN CORPUSCULAR HEMOGLOBIN 18.5 pg (27.00-32.0); PLATELET COUNT 148 K/uL (150-450); RED CELL DISTRIBUTION WIDTH 34.1 % (11.5-14.5)
[2024-05-06 08:59] VITALS: BP 167/72; O2SAT 98
[2024-05-06] MEDS ORDERED: LOSARTAN POTASSIUM 50 MG TABLET PO SCH (09:00)
== END 2024-05-06 15:48 | disposition home or self-care (01) | DRG 812 ==
LOC: ER 10:42 → MEDJ 19:11 → MEDI 19:11 → MEDJ 19:22
PROVIDERS: General Practice; Preventive Medicine Public Health & General Preventive Medicine; Student in an Organized Health Care Education/Training Program; ADMIT Internal Medicine; ATTEND Internal Medicine
PROC: 30233N1 Transfusion of Nonautologous Red Blood Cells into Peripheral Vein, Percutaneous Approach (ICD-10-PCS; principal; 2024-05-04)
DX: D64.89 Other specified anemias (principal); R42 Dizziness and giddiness

== ENCOUNTER 2024-08-17 07:34 | Inpatient (IN) | payer OTHER ==
[~2024-08-17] VITALS: Ht 167.6 cm; Wt 95.3 kg
--- NOTE | 2024-08-17 08:02 | NUR ---
PTE ALERTA Y ORIENTADA X3 LLEGA A ER EN AMBULANCIA. PTE REFIERE QUE DESDE HACE 1 SEMANA PRESENTA DIFICULTAD RESPIRATORIA Y DEBILIDAD. SE REALIZA EKG Y SE PRESENTA A DR. PEARCE QUIEN ORDENA QUE SE UBIQUE A PTE EN RIA SIN MONITOR, OXIMETRIA Y CANULA NASAL.
--- NOTE | 2024-08-17 08:44 | NUR ---
SE REALIZA LAB SUSAN ORDEN MEDICA BAJO MEDIDAS ASEPTICAS. SE ORIENTA A PTE QUIEN REFIERE ENTENDER Y ACEPTAR.
[2024-08-17 08:57] LABS: HEMOGLOBIN 9.5 g/dL (12.0-15.00); MEAN CORPUSCULAR HEMOGLOBIN 18.4 pg (27.00-32.0); MEAN CORPUSCULAR HGB CONC 29.8 g/dl (32.0-36.0); PLATELET COUNT 251 K/uL (150-450); RED BLOOD COUNT 5.18 M/uL (4.00-6.00)
[2024-08-17 08:59] LABS: MEAN CELL VOLUME 61.8 fL (80.00-100.00); RED CELL DISTRIBUTION WIDTH 18.2 % (11.5-14.5)
[2024-08-17 09:47] LABS: ALBUMIN 3.2 gm/dL (3.4-5.0); BILIRUBIN TOTAL 0.55 mg/dL (0.3-1.2); CALCIUM 8.6 mg/dL (8.5-10.1); CREATININE SERUM 0.94 mg/dL (0.55-1.02); GFR 60.54; GLOBULINA 3.8 G/DL (2.4-3.5); POTASSIUM 4.72 mEq/L (3.5-5.1)
[2024-08-17 10:30] LABS: URINE APPEARANCE Cloudy; URINE BILIRRUBIN Small (NEGATIVE); URINE BLOOD Small; URINE COLOR Dark Yellow; URINE LEUKOCYTE Trace; URINE NITRATE Negative
[2024-08-17 10:33] LABS: URINE BACTERIA 3817.5 uL (0.0-1933); URINE CAST 10.16 uL (0.0-1.40); URINE EPITHELIAL CELLS 57.4 uL (0.0-38.8); URINE RBC 52.4 uL (0.0-20.8); URINE WBC 34.6 uL (0.0-23.2)
[2024-08-17 10:45] LABS: COVID-19 AG NEGATIVE (NEGATIVE)
[2024-08-17 10:53] LABS: INFLUENZA A AG NEGATIVE (NEGATIVE)
[2024-08-17 11:14] LABS: URINE GLUCOSE 100 MG/DL (NEGATIVE); URINE KETONE 40 (NEGATIVE); URINE PROTEIN 300 (NEGATIVE)
[2024-08-17 11:17] LABS: URINE MUCUS MODERATE; URINE YEAST NEGATIVE /hpf
[2024-08-17 13:23] LABS: ABG PH 7.492 (7.35-7.45); ABG PO2 107.7 mmHg (80-100); ABG pCO2 33.1 mmHg (35-45); BASE EXCESS 2.1 mmol/l; BICARBONATE 24.8 mmol/l (23-25); SaO2 98.6 %; Tco2 25.8 mmol/l
[2024-08-17 14:49] LABS: allen test SATISFACTORY; o2 28 %; puncture site RADIAL RIGHT
[2024-08-17 14:50] LABS: mode NASAL CANNULA
[2024-08-17] MEDS ORDERED: levoFLOXacin IN DEXTROSE 5 % 150 ML IV SCH (18:54)
[2024-08-17] MEDS ORDERED: BUDESONIDE 0.5 MG/2 ML AMPUL.NEB IH ONE ×2 (19:00→20:26)
[2024-08-17] MEDS ORDERED: 0.9 % SODIUM CHLORIDE 500 ML IV ONE (19:00)
[2024-08-17] MEDS ORDERED: ACETAMINOPHEN 500 MG GEL..CAP PO PRN ×2 (19:00→22:15)
[2024-08-17] MEDS ORDERED: GUAIFEN/DEXTROMETHORPHAN/PE 10 ML BLIST.PACK PO ONE ×2 (19:00→20:10)
[2024-08-17] MEDS ORDERED: IPRATROPIUM BROMIDE 0.5 MG/2.5 ML AMPUL.NEB IH SCH ×3 (19:00→22:05)
[2024-08-17] MEDS ORDERED: 0.9 % SODIUM CHLORIDE 1,000 ML IV SCH (19:15)
[2024-08-17] MEDS ORDERED: IPRATROPIUM BROMIDE 0.5 MG/2.5 ML AMPUL.NEB IH ONE (20:25)
[2024-08-17] MEDS ORDERED: LEVALBUTEROL HCL 1.25 MG/3 ML SOLUTION IH SCH (22:05)
[2024-08-17] MEDS ORDERED: FUROsemide 20 MG/2 ML VIAL IV SCH (22:07)
[2024-08-17] MEDS ORDERED: MONTELUKAST SODIUM 10 MG TABLET PO SCH (22:13)
[2024-08-17] MEDS ORDERED: MAGNESIUM SULFATE IN WATER 50 ML IV ONE (22:15)
[2024-08-18] VITALS (8 sets, daily range): BP systolic 115–128; BP diastolic 55–68; O2SAT 93–100
[2024-08-18] MEDS ORDERED: GUAIFEN/DEXTROMETHORPHAN/PE 10 ML BLIST.PACK PO SCH (01:00)
[2024-08-18] MEDS ORDERED: BUDESONIDE 0.5 MG/2 ML AMPUL.NEB IH SCH (09:00)
[2024-08-18] MEDS ORDERED: PATIENTS OWN MEDICATION (MEDICAMENTO EN PISO) PO SCH (09:00)
[2024-08-18] MEDS ORDERED: FAMOTIDINE/PF 20 MG in 0.9 % SODIUM CHLORIDE 8 ML IV PUSH SCH (09:00)
[2024-08-18] MEDS ORDERED: ENOXAPARIN SODIUM 40 MG/0.4 ML SYRINGE SUBCUTANEO SCH (09:00)
[2024-08-18] MEDS ORDERED: METHYLPREDNISOLONE SOD SUCC 40 MG VIAL IV SCH (11:19)
[2024-08-19] VITALS (9 sets, daily range): BP systolic 126–156; BP diastolic 65–84; O2SAT 90–97
[2024-08-19] MEDS ORDERED: FAMOTIDINE/PF 20 MG/2 ML VIAL ONE (07:38)
[2024-08-19] MEDS ORDERED: LEXAPRO PO SCH (09:00)
[2024-08-19] MEDS ORDERED: PATIENTS OWN MEDICATION (MEDICAMENTO EN PISO) PO SCH (09:00)
[2024-08-19 11:24] LABS: INR 1.19; PARTIAL THROMBOPLASTIN TIME 32.1 SECONDS (22.0-34.0); PROTHROMBIN TIME 12.8 SECONDS (9.0-11.5)
[2024-08-19 11:42] LABS: MAGNESIUM 2.5 mg/dL (1.8-2.4)
[2024-08-19 12:06] LABS: C-REACTIVE PROTEIN 14.3 MG/DL (0.00-0.29)
[2024-08-19] MEDS ORDERED: MIRTAZAPINE 15 MG TABLET PO NR (13:30)
[2024-08-20 02:43] VITALS: BP 132/67
[2024-08-20 06:22] LABS: HEMATOCRIT 26.9 % (36.0-45.00); MEAN CORPUSCULAR HGB CONC 30.1 g/dl (32.0-36.0); PLATELET COUNT 260 K/uL (150-450); RED BLOOD COUNT 4.36 M/uL (4.00-6.00); RED CELL DISTRIBUTION WIDTH 18.5 % (11.5-14.5)
[2024-08-20 06:32] LABS: HEMOGLOBIN 8.1 g/dL (12.0-15.00); MEAN CORPUSCULAR HEMOGLOBIN 18.5 pg (27.00-32.0)
[2024-08-20 06:33] LABS: MEAN CELL VOLUME 61.6 fL (80.00-100.00)
[2024-08-20 06:40] LABS: CALCIUM 8.2 mg/dL (8.5-10.1); CREATININE SERUM 0.69 mg/dL (0.55-1.02); GFR 86.49; POTASSIUM 4.48 mEq/L (3.5-5.1)
[2024-08-20 08:44] VITALS: BP 110/70; O2SAT 90
[2024-08-20] MEDS ORDERED: [UNRECOGNIZED DRUG - OTHER] PO SCH (09:00)
[2024-08-20] MEDS ORDERED: MIRTAZAPINE 15 MG TABLET PO SCH (09:00)
[2024-08-20] MEDS ORDERED: ESCITALOPRAM OXALATE 20 MG TABLET PO NR (10:30)
[2024-08-20 17:50] VITALS: BP 140/77; O2SAT 97
[2024-08-21] VITALS (7 sets, daily range): BP systolic 103–144; BP diastolic 57–80; O2SAT 90–99
[2024-08-21 06:31] LABS: HEMATOCRIT 25.2 % (36.0-45.00); MEAN CORPUSCULAR HGB CONC 30.9 g/dl (32.0-36.0); PLATELET COUNT 260 K/uL (150-450); RED BLOOD COUNT 4.12 M/uL (4.00-6.00); RED CELL DISTRIBUTION WIDTH 17.9 % (11.5-14.5)
[2024-08-21 06:34] LABS: MEAN CELL VOLUME 61.3 fL (80.00-100.00); MEAN CORPUSCULAR HEMOGLOBIN 18.9 pg (27.00-32.0)
[2024-08-21 06:35] LABS: HEMOGLOBIN 7.8 g/dL (12.0-15.00)
[2024-08-21] MEDS ORDERED: MIRTAZAPINE 15 MG TABLET PO SCH (09:00)
[2024-08-21] MEDS ORDERED: ESCITALOPRAM OXALATE 20 MG TABLET PO SCH (09:00)
[2024-08-21] MEDS ORDERED: POLYETHYLENE GLYCOL 3350 17 GM BLIST.PACK PO SCH (12:21)
[2024-08-21] MEDS ORDERED: PANTOPRAZOLE SODIUM 40 MG/VIAL VIAL IV SCH (13:00)
[2024-08-21] MEDS ORDERED: SUCRALFATE 1 G TABLET PO SCH (17:46)
[2024-08-22 01:52] VITALS: BP 121/70; O2SAT 95
[2024-08-22 05:29] VITALS: O2SAT 98
[2024-08-22 07:10] LABS: HEMATOCRIT 30.8 % (36.0-45.00); MEAN CORPUSCULAR HGB CONC 30.9 g/dl (32.0-36.0); PLATELET COUNT 280 K/uL (150-450); RED BLOOD COUNT 4.81 M/uL (4.00-6.00); RED CELL DISTRIBUTION WIDTH 20.2 % (11.5-14.5)
[2024-08-22 07:11] LABS: HEMOGLOBIN 9.5 g/dL (12.0-15.00); MEAN CORPUSCULAR HEMOGLOBIN 19.7 pg (27.00-32.0)
[2024-08-22 07:12] LABS: MEAN CELL VOLUME 64.1 fL (80.00-100.00)
[2024-08-22 10:07] VITALS: BP 109/63; O2SAT 97
[2024-08-22 17:00] VITALS: O2SAT 90
[2024-08-22 17:15] VITALS: BP 124/69; O2SAT 95
[2024-08-22 20:29] VITALS: O2SAT 90
[2024-08-22] MEDS ORDERED: MIRTAZAPINE 15 MG TABLET PO SCH (21:00)
[2024-08-23] VITALS (7 sets, daily range): BP systolic 132–148; BP diastolic 69–81; O2SAT 94–100
[2024-08-23 19:00] LABS: ABG PH 7.416 (7.35-7.45); ABG pCO2 42.7 mmHg (35-45); BICARBONATE 26.8 mmol/l (23-25); SaO2 94.4 %; Tco2 28.1 mmol/l
[2024-08-23 22:15] LABS: allen test SATISFACTORY; mode ROOM AIR; o2 21 %; puncture site RADIAL LEFT
[2024-08-24 01:19] VITALS: BP 135/77; O2SAT 95
[2024-08-24 02:06] VITALS: O2SAT 90
[2024-08-24 05:49] VITALS: O2SAT 93
[2024-08-24 07:59] VITALS: BP 132/62; O2SAT 96
== END 2024-08-24 13:52 | disposition home or self-care (01) | DRG 202 ==
LOC: ER 07:34 → MEDI 22:24
PROVIDERS: Emergency Medicine; ADMIT Student in an Organized Health Care Education/Training Program; ATTEND Student in an Organized Health Care Education/Training Program
PROC: B020ZZZ Computerized Tomography (CT Scan) of Brain (ICD-10-PCS; principal; 2024-08-17)
PROC: BW24ZZZ Computerized Tomography (CT Scan) of Chest and Abdomen (ICD-10-PCS; 2024-08-17)
PROC: 4A12X4Z Monitoring of Cardiac Electrical Activity, External Approach (ICD-10-PCS; 2024-08-18)
PROC: 30233N1 Transfusion of Nonautologous Red Blood Cells into Peripheral Vein, Percutaneous Approach (ICD-10-PCS; 2024-08-21)
DX: J45.41 Moderate persistent asthma with (acute) exacerbation (principal); J44.1 Chronic obstructive pulmonary disease with (acute) exacerbation; J98.11 Atelectasis; N39.0 Urinary tract infection, site not specified; R65.10 Systemic inflammatory response syndrome (SIRS) of non-infectious origin without acute organ dysfunction; I50.9 Heart failure, unspecified; K44.9 Diaphragmatic hernia without obstruction or gangrene; D64.9 Anemia, unspecified